=== PATIENT | male | born 1995 | race Caucasian/White ===

== ENCOUNTER 2017-02-17 01:55 | Emergency (ER) | payer OTHER ==
[~2017-02-17] VITALS: Ht 190.5 cm; Wt 127.4 kg
[2017-02-17 02:00] VITALS: TEMP 36.9; Ht 190.5 cm; Wt 127.4 kg
[2017-02-17] MEDS ORDERED: DiphenhydrAMINE HCL 50 MG/ML VIAL IV STA (02:05)
[2017-02-17] MEDS ORDERED: FAMOTIDINE IV INJ 20 MG in DEXTROSE 5% 100ML 100 ML IV STA (02:05)
[2017-02-17] MEDS ORDERED: EPINEPHRINE ADULT AUTO-INJECT 0.3 MG SYR IM STA (02:05)
[2017-02-17] MEDS ORDERED: ALBUT/IPRATROP 3MG/0.5MG NEB 3 ML VIAL INH STA (02:08)
[2017-02-17] MEDS ORDERED: DEXAMETHASONE **PF** INJ 10 MG/ML VIAL IV ONE (02:15)
[2017-02-17] MEDS ORDERED: VNTHFA/IN INH (02:15)
[2017-02-17] MEDS ORDERED: ADVIN10/60 INH (02:16)
[2017-02-17] MEDS ORDERED: FLUT0.15 NAE (02:17)
[2017-02-17] MEDS ORDERED: [UNRECOGNIZED DRUG - REMARK] PO (02:20)
[2017-02-17] MEDS ORDERED: ONDANSETRON INJ 2 MG/ML 2 ML VIAL IV STA (02:57)
[2017-02-17] MEDS ORDERED: ONDANSETRON INJ 2 MG/ML 2 ML VIAL ONE (02:58)
[2017-02-17 03:21] VITALS: O2SAT 95
[2017-02-17 05:37] VITALS: BP 119/73; PULSE 90; O2SAT 96
--- NOTE | 2017-02-17 05:48 | EMERGENCY ROOM VISIT NOTE ---
History First contact with patient: 02:04 Chief Complaint: ALLERGIC REACTION Stated Complaint: ALLERGIC REACTION TO PEANUTS Nursing Triage Summary: prior to arrival patient ate a cookie with peanut in it and developed allergic reaction and trouble breathing. patient administered himself an epi-pen prior to arrival and took 50mg benadryl. History of Present Illness The patient is a 21 year old male who presents to the Emergency Room with complaints of throat tightness, tongue swelling, itching and shortness of breath after being exposed to peanuts. Patient states he had some cookies and did not realize there was peanuts in it as they were not supposed to have any nuts in them. patient immediately had difficulty breathing and throat tightness and his friend gave him his EpiPen to use. She states he feels somewhat better from this but still feels wheezy itchy and shaky. His is the first time ever he sees an EpiPen. He also took 50 of Benadryl. Patient also plans of nausea and vomiting. Patient denies chest pain, abdominal pain, headache, recent illness. No other new foods soaps or detergents. Review of Systems See HPI for pertinent positives & negatives. A total of 10 systems reviewed and were otherwise negative. Past Medical/Surgical History None Social History Smoking Status: Never Smoker Smokeless Tobacco Use: No Drug Use: none Marital Status: single Occupation Status: [employer] student Current/Historical Medications Scheduled [[facility] ], 1 TAB PO DAILY Scheduled PRN Albuterol Hfa (Ventolin Hfa), 2 PUFFS INH Q6H PRN for SOB/Wheezing Fluticasone Prop/Salmeterol (Advair Diskus 100/50 60 Dose), 1 PUFFS INH BID PRN for SOB/Wheezing Fluticasone Propionate (Nasal) (Flonase Allergy Relief), 1 SPRAY BRIAN BID PRN for Allergic Reaction Physical Exam Vital Signs Date Time Temp Pulse Resp B/P (MAP) Pulse Ox O2 Delivery O2 Flow Rate FiO2 02/17/17 05:37 90 20 119/73 96 Room Air 02/17/17 03:57 126 20 113/69 93 Room Air 02/17/17 03:21 95 Nasal Cannula 2.0 02/17/17 03:21 89 Room Air 02/17/17 02:24 120 20 126/89 96 Room Air 02/17/17 02:18 100 Room Air 02/17/17 02:18 100 Room Air 02/17/17 02:18 100 Room Air 02/17/17 02:15 113 02/17/17 02:00 36.9 127 24 139/79 94 Room Air Physical Exam VITALS: Vitals are noted on the nurse's note and reviewed by myself. Vital signs stable. GENERAL: Pleasant male speaking in full sentences, in no acute distress, nondiaphoretic, well-developed well-nourished. SKIN: Diffuse erythematous blanchable dermatitis most consistent with hives The rest of the skin was without rashes, erythema, edema, or bruising. There is no tenting of the skin. Capillary reflex less than 2 seconds. HEAD: Normocephalic atraumatic. EARS: External auditory canals clear, tympanic membranes pearly hernández without erythema or effusion bilaterally. EYES: Pupils equal round and reactive to light and accommodation. Conjunctivae without injection, sclerae without icterus. Extraocular movements intact. NOSE: Patent, turbinates without inflammation or discharge. No sinus tenderness. MOUTH: Mucous membranes moist. Pharynx with erythema without exudate. Uvula midline and slightly edematous. Airway patent. Tongue does not deviate. NECK: Supple without nuchal rigidity. No lymphadenopathy. No thyromegaly. Cervical spine is nontender. No JVD. HEART: Regular rate and rhythm without murmurs gallops or rubs. LUNGS: Mild diffuse end expiratory wheezes, without rales or rhonchi. No dullness to percussion. No retractions or accessory muscle use. ABDOMEN: Positive bowel sounds x 4. Normal tympanic percussion. Soft, nontender, without masses or organomegaly. Ramírez sign negative. No guarding or rebound tenderness. MUSCULOSKELETAL: No muscle atrophy, erythema, or edema noted. NEURO: Patient was alert and oriented to person place and time. Normal sensation to light and sharp touch. No focal neurological deficits. Medical Decision & Procedures Medications Administered Medications (Trade) Dose Ordered Sig/Mauro Route Start Time Stop Time Status Last Admin Dose Admin Dexamethasone Sodium Phosphate (Dexamethasone Inj Pf) 10 mg NOW ONCE IV 02/17/17 02:15 02/17/17 02:16 DC 02/17/17 02:11 10 MG Famotidine 20 mg/ Dextrose 102 ml @ 200 mls/hr NOW STAT IV 02/17/17 02:05 02/17/17 02:35 DC 02/17/17 02:16 200 MLS/HR Epinephrine (Epipen) 0.3 mg NOW STAT IM 02/17/17 02:05 02/17/17 02:07 DC 02/17/17 02:11 0.3 MG Albuterol/ Ipratropium (Duoneb) 3 ml NOW STAT INH 02/17/17 02:08 02/17/17 02:09 DC 02/17/17 02:11 3 ML Ondansetron HCl (Zofran Inj) 4 mg NOW STAT IV 02/17/17 02:57 02/17/17 02:58 DC 02/17/17 02:57 4 MG ED Course Prior records/ancillary studies reviewed. Triage Nursing notes reviewed. Additional history obtained from friends. The patient's history was concerning for possible allergic reaction. Differential diagnosis: Etiologies such as allergic reaction, anaphylaxis, urticaria, Callahan-Don syndrome, toxic epidermal necrolysis, erythema multiforme, cellulitis, as well as others were entertained. Physical examination: As above. Patient had some airway swelling and urticaria with wheezing ER treatment provided: Continuous cardiac monitoring Benadryl 50 mg IV Pepcid 20 mg IV Decadron 10 mg IV Nebulizer IV fluids, Zofran On reassessment the patient felt better. Diagnostic interpretation by me: Deferred It appears the patient had an anaphylactic allergic reaction. The above treatment did well to reverse the symptoms. After prolonged monitoring and frequent reassessments the patient did very well and symptoms resolved. The patient was counseled on the spectrum of this disease process and told to avoid potential triggers. I gave my usual and customary discussion regarding this issue. By the evaluation outlined above emergent etiologies such as recurring anaphylaxis, anaphylatic shock, airway compromise, Callahan-Don syndrome, toxic epidermal necrolysis, erythema multiforme, infectious etiologies, as well as others were deemed relatively unlikely. The pt informed about the findings as listed above. All questions were answered and pleased with the treatment. Return instructions were outlined and the patient was discharged in stable condition. Outpatient prescription management: EpiPen prednisone Referral: The patient was referred back to primary care physician for follow-up in 2-3 days for a recheck of the current condition. or The patient was referred to Allergy/Immunology for further evaluation. Medical Decision As above Medication Reconcilliation Current Medication List: was personally reviewed by me Blood Pressure Screening Patient's blood pressure: Normal blood pressure Impression Primary Impression: Anaphylaxis Departure Information Dispostion Home / Self-Care Condition GOOD Referrals No Doctor, Assigned (PCP) Patient Instructions My [facility] Additional Instructions DO NOT drive, drink alcohol, operate machinery, or perform dangerous activities today. You were given medications in the ER that can affect your ability to safely function or operate a vehicle. Do not be around any nuts at all. Avoid touching them or being near them. Epi-Pen: Use one injection as instructed for severe allergic reactions associated with shortness of breath, difficulty breathing, or throat or tongue swelling. If you use this injection call 911 or proceed immediately to the nearest Emergency Room. Prednisone 50mg: Once daily until the prescription is finished. It is best to take this earlier in the day as some patients note occasional difficulty falling asleep when taken in the late evening. Diphenhydramine(Benadryl) 25mg: use 25 to 50 mg every six hours for swelling, itching, or hives. This medication is sedating and will cause drowsiness. Avoid alcohol, operating machinery or dangerous equipment, working on ladders or roofs, DRIVING, or situations where being under the influence may be dangerous. Zantac 75: Take two pills twice a day along with Benadryl as needed for swelling , itching, or hives. Most people know this for its affect on the stomach, but it also acts similar to, but less potent than Benadryl for allergic reactions. Both the Benadryl and the Zantac are available [id number]. Continue current medications. Return to the emergency department for worsening of your rash, swelling of your face, lips, tongue, or throat, difficulty breathing, vomiting, or as needed. Follow-up with your primary care physician in 2 to 3 days for a recheck of your current condition. Problem Qualifiers Primary Impression: Anaphylaxis Encounter type: initial encounter Qualified Codes: T78.2XXA - Anaphylactic shock, unspecified, initial encounter
[2017-02-17] MEDS ORDERED: PRED50TA PO (05:50)
[2017-02-17] MEDS ORDERED: EPP3/2 IM (05:50)
== END 2017-02-17 06:02 | disposition home or self-care (01) ==
LOC: C.EDB 01:56
DX: T78.01XA Anaphylactic reaction due to peanuts, initial encounter (principal); X58.XXXA Exposure to other specified factors, initial encounter

== ENCOUNTER → 2017-03-14 | Outpatient (CLI) | payer OTHER ==
[~2017-03-14] MED LIST: ADVIN10/60 INH; EPP3/2 IM; FLUT0.15 NAE; VNTHFA/IN INH; [UNRECOGNIZED DRUG - REMARK] PO
== END | disposition home or self-care (01) ==
LOC: C.RDSM 15:19
PROVIDERS: ATTEND Family Medicine Sports Medicine
DX: M25.561 Pain in right knee (principal); Z91.018 Allergy to other foods; Z91.010 Allergy to peanuts

== ENCOUNTER → 2017-03-23 | Outpatient (CLI) | payer OTHER ==
--- NOTE | 2017-03-23 17:35 | DIAGNOSTIC IMAGING REPORT ---
R LOWER EXT JOINT WITHOUT CLINICAL HISTORY: RT KNEE PAIN pain TECHNIQUE: MRI multi axial acquisition COMPARISON STUDY: None FINDINGS: Signal characteristics the osseous structures are in general unremarkable. There is a small bone contusion anterior aspect lateral tibial plateau. This is associated with a 5 x 6 mm meniscal cyst. Minimal contusion fibular head. Anterior and posterior cruciate ligaments are intact. Medial and lateral collateral ligaments are unremarkable. Lateral meniscus is grossly unremarkable. There appears to be a very small short segment intrameniscal tear of the peripheral margin of the anterior horn. The medial meniscus shows very slight truncation apex anterior horn medial meniscus. The remainder the medial meniscus is unremarkable. IMPRESSION: 1. Very small contusion anterior aspect medial tibial plateau associated with a small 6 x 5 mm meniscal cyst. 2. Very small short segment intrameniscal tear peripheral aspect anterior horn lateral meniscus. 3. Slight truncation apex anterior horn medial meniscus. 4. Otherwise negative study. The above report was generated using voice recognition software. It may contain grammatical, syntax or spelling errors. Electronically signed by: Louie Fernando M.D. 03/23/2017 5:34 PM Dictated Date/Time: 03/23/2017 5:27 PM
== END | disposition home or self-care (01) ==
LOC: C.MRI 16:44
PROVIDERS: ATTEND Family Medicine Sports Medicine
DX: M25.561 Pain in right knee (principal); S80.01XA Contusion of right knee, initial encounter; S83.281A Other tear of lateral meniscus, current injury, right knee, initial encounter; X58.XXXA Exposure to other specified factors, initial encounter

== ENCOUNTER → 2017-04-06 | Outpatient (CLI) | payer OTHER ==
[~2017-04-06] MED LIST changes: +IBUP-1050 PO
== END | disposition home or self-care (01) ==
LOC: C.RDSM 16:00
PROVIDERS: ATTEND Orthopaedic Surgery
DX: M25.561 Pain in right knee (principal); Z91.018 Allergy to other foods; Z91.010 Allergy to peanuts

== ENCOUNTER → 2017-04-18 | Day surgery (SDC) | payer OTHER ==
[2017-04-13 12:20] VITALS: Ht 190.5 cm; Wt 122.7 kg
[~2017-04-18] VITALS: Ht 190.5 cm; Wt 122.7 kg
[~2017-04-18] MED LIST changes: -ADVIN10/60 INH; +ATROPINE SULFATE 0.1 MG/ML 5ML SYR IV PRN; +CEFAZOLIN 3000MG IV PUSH 22.5 ML IV SCH; +DEXAMETHASONE SOD INJ 4 MG/ML VIAL ONE; +EpHEDrine SULFATE INJ 50 MG/ML AMP IV PRN; +EpINEphrine HCL INJ 1 MG/ML 1ML SYRINGE ONE; +EpINEphrine INJ 1MG/ML AMP 1 MG/ML AMP ONE; +FENTANYL CITRATE INJ 50 MCG/1 ML 2 ML VIAL IV PRN; +FENTANYL CITRATE INJ 50 MCG/1 ML 2 ML VIAL ONE; -FLUT0.15 NAE; +HYDROmorphone INJ 1 MG/ML SYR IV PRN; +KETOROLAC TROMETHAMINE 30 MG/ML VIAL ONE; +LACTATED RINGER'S 1000ML 1,000 ML IV SCH; +LIDO 2%/EPINEPHRINE 1:100000 20 ML VIAL INFIL ONE; +LIDOCAINE HCL 2% 2 ML VIAL (20MG/ML) ONE; +METOCLOPRAMIDE HCL INJ 5 MG/ML 2 ML VIAL IV PRN; +MIDAZOLAM HCL 1 MG/ML 2ML VIAL ONE; +ONDANSETRON INJ 2 MG/ML 2 ML VIAL IV PRN; +ONDANSETRON INJ 2 MG/ML 2 ML VIAL ONE; +OXYCODONE/ACETAMINOPHEN 5-325 TAB PO PRN; +PROPOFOL IV EMULSION 10 MG/ML 20 ML VIAL IV ONE; +ROPIVACAINE 0.5% 5 MG/ML 30 ML VIAL ONE; +SODIUM CHLORIDE 0.9% 1000ML 1,000 ML IV SCH; -[UNRECOGNIZED DRUG - REMARK] PO
--- NOTE | 2017-04-18 06:48 | History & Physical Bridge - SC ---
H&P Re-Evaluation Bridge Note: I have examined the patient, reviewed the History & Physical and in the interval since the performance of the History & Physical I have noted the following changes of clinical significance: No changes noted
--- NOTE | 2017-04-18 08:02 | [facility] Post Operative Brief Note ---
Immediate Operative Summary Operative Date Apr 18, 2017. Pre-Operative Diagnosis Right Knee Parameniscal Cyst Post-Operative Diagnosis same as preop Procedure(s) Performed Right Knee Arthroscopy, Minor Synovectomy,Parameniscal Cyst Decompression Surgeon Dr. Ibrahim Tester [employer]ards Surgeon(s) Juve Mullen PA-C Estimated Blood Loss 1ml Findings Consistent with Post-Op Diagnosis Fluids (cc crystalloids) 750 cc Specimens none Drains None Anesthesia Type General Complication(s) none Disposition Accompanied Pt To Recovery: no Disposition: Recovery Room / PACU
--- NOTE | 2017-04-18 08:16 | [facility] Operative Report ---
Operative Report Operative Date Apr 18, 2017. Pre-Operative Diagnosis Right Knee Parameniscal Cyst Post-Operative Diagnosis same as preop Procedure(s) Performed Right Knee Arthroscopy, Minor Synovectomy,Parameniscal Cyst Decompression Surgeon Dr. Ibrahim Termite Inspector Surgeon(s) Juve Mullen PA-C Estimated Blood Loss 1ml Fluids 750 cc Specimens none Drains None Anesthesia Type General Complication(s) none Disposition no Recovery Room / PACU I attest to the content of the Intraoperative Record and any orders documented therein. Any exceptions are noted below.
--- NOTE | 2017-04-18 08:20 | Discharge Instructions ---
Discharge Instructions Date of Service Apr 18, 2017. Admission Reason for Admission: Right Knee Parameniscal Cyst Discharge Discharge Diagnosis / Problem: Right knee synovitis; parameniscal cyst Discharge Goals Goal(s): Decrease discomfort, Improve function, Increase independence Activity Recommendations Activity Limitations: as noted below Lifting Limitations: none Exercise/Sports Limitations: until after follow-up appointment May Resume Sexual Activity: when tolerated Shower/Bathe: tomorrow, keep incision dry Driving or Machine Use: After 2 wks post op follow up Weightbearing Status: Right weightbearing (as tolerated with aide of crutches) . Instructions / Follow-Up Instructions / Follow-Up Post-operative Instructions Dear Patient and Family/Friends, Before you are discharged from the hospital, it is important to know what to expect when you get home after surgery. To that end, we have created this sheet of discharge instructions which covers many commonly asked questions. Make sure you go through this sheet in its entirety with your nurse before you are discharged. Please note that we will go over the specifics of your surgery and recovery when you return for your first post-operative visit. Sincerely, Dr. Ibrahim Pain Expect to be in a fair amount of pain after surgery. Remember, our goal is not to eliminate your pain, but to make it tolerable. It is a good idea to stay ahead of your pain by taking the medications you were prescribed once you get home. Typically, the pain starts improving 3-7 days after surgery. You should start weaning off the narcotic pain medication (oxycodone, hydrocodone, hydromorphone, morphine) as soon as your pain improves. Please call our office if your pain is not adequately controlled. Ice Ice your operative site at least 5 times a day for 15-30 minutes at a time. Make sure you have a thin cloth between the ice or cooling unit and your skin to prevent painting bite. This is especially important if you received a nerve block. Continue icing your operative site for the first 5-7 days after surgery , then as needed. Diet/Nausea/Vomiting Start by drinking clear liquids and eating crackers. If you can tolerate this, then you may resume your normal diet. If you feel nauseated or vomit, take Zofran/ondansetron (if prescribed). Please call our office if you have intractable nausea or vomiting, or, if after hours, you may go to the Emergency Room for help. Constipation Constipation is a common side effect of narcotic pain medication. If you have not had a bowel movement within 2 days after surgery, we recommend purchasing an over the counter laxative such as Milk of Magnesia, Dulcolax, or Miralax from a local pharmacy, and taking it as instructed. Call our clinic if any questions. Slings and Braces If you were placed in a sling or brace, it must be worn at all times, including sleep. You may remove your sling or brace for physical therapy, home exercises , and showering. The length of time you will be in your brace and range of motion restrictions depends on what surgery you had; these details will be reviewed at your first post-operative appointment. Weight bearing and Range of Motion. Do not bear any weight through your operative extremity immediately after surgery. If you had upper extremity surgery, do not lift anything with that arm. If you are in a knee brace, keep it locked in place until your follow-up. We will discuss your weight bearing, range of motion, and lifting restrictions in detail at your first post-operative appointment. Continuous Passive Motion (CPM) Machine If you were prescribed a CPM machine, it will start after your first post- operative appointment, at which time we will give you instructions on the range of motion settings and duration of treatment Physical therapy You will be given a prescription for physical therapy or occupational therapy at your first post-operative appointment. Typically, patients start therapy within 1 week of surgery Wound care and showering We will inspect your wound at your first post-operative visit, and may do a dressing change at that time. Most patients will be in a water-proof dressing that is removed 14 days after surgery. It is normal to see some dried blood on the dressing. Do not remove your dressing, paper strips or sutures yourself unless you are given permission. Showering is allowed the day after surgery. Do not scrub or remove any dressings. The wound should not be submerged underwater (i.e. in a bathtub or pool) until 4 weeks after surgery MERRY stockings If you were given white stockings, these are to be worn at all times except to shower (on both legs) for the first 2 weeks after surgery. Driving You may not drive while taking narcotic pain medication or while in a cast, splint, sling or brace. You, the patient, need to make the final determination about when you are safe to drive, however, the earliest you may consider driving after surgery is below: Hand/Wrist/Elbow Surgery: 3 days Shoulder Surgery: 2 weeks Hip,/Knee/Ankle Surgery: 4 weeks Fracture repair: 6 weeks Return to Work Your return to work depends on what surgery was done and what type of work you do. Please bring any paperwork your employer needs completed to your first post -operative visit. Also, bring a description of your job duties, as this helps us to understand what risks you may face at work. Travel Avoid long distance travel (greater than 1 hour) in airplanes and cars for the first 6 weeks after surgery. If you must travel, you need to have a Doppler ultrasound done before you travel to rule out a blood clot in your legs. Follow-up You should have a follow-up appointment already scheduled 1-2 days after surgery. If not, please contact our office to make this appointment before you leave the hospital. When to call the office It is normal to have swelling and bruising in the limb that was operated on. This will improve with time. It is also normal to have fevers for the first 2 days after surgery. Reasons you should call your doctor include: Uncontrolled pain; Nausea, vomiting, or constipation that does not improve with medication; Fevers over 101.5, chills, sweats; Drainage or bleeding from the wound; Foul odor; Spreading areas of redness; Any other concerns Current Hospital Diet Patient's current hospital diet: Discharge Diet Recommended Diet: Regular Diet Procedures Procedures Performed: Right Knee Arthroscopy, Minor Synovectomy,Parameniscal Cyst Decompression Pending Studies Studies pending at discharge: no Medical Emergencies . Who to Call and When: Medical Emergencies: If at any time you feel your situation is an emergency, please call 911 immediately. . Non-Emergent Contact Non-Emergency issues call your: Primary Care Provider Call Non-Emergent contact if: you have a fever, temperature is above 101.5, your pain is not controlled, your pain is worsening, wound has increased drainage, you have any medication questions . "Provider Documentation" section prepared by Juve Mullen. . [place] Drug Monitoring Program Search Results: patient reviewed within database, no issues identified, see additional documentation
--- NOTE | 2017-04-18 08:42 | OPERATIVE REPORT ---
DATE OF OPERATION: 04/18/2017 PREOPERATIVE DIAGNOSIS: Right knee lateral parameniscal cyst. POSTOPERATIVE DIAGNOSIS: Same and lateral synovitis. OPERATIONS PERFORMED: 1. Right knee arthroscopy parameniscal cyst decompression. 2. Right knee minor synovectomy. SURGEON: Sandor Ibrahim MD. MANAGER PROCUREMENT: Shey Mullen. ESTIMATED BLOOD LOSS: 1 mL. IV FLUIDS: 750 mL crystalloid. IMPLANTS: None. SPECIMENS: None. COMPLICATIONS: None. INDICATIONS: Bogdan is a 21-year-old male with a history of football injury taking a helmet to the anterolateral aspect of the knee back in high school. He has had anterolateral knee pain that has been refractory to conservative management. MRI was obtained demonstrating a parameniscal cyst. Physical exam is consistent with tenderness to palpation along the anterior lateral and mid lateral joint lines. I had a long discussion with him about the treatment options, risks and benefits of surgery, alternatives to surgery and expected outcomes. After reviewing all these he elected to proceed with surgery. All questions were answered. Informed consent was signed. OPERATIVE FINDINGS: 1. Undersurface of the patella showed small area of grade 2 chondromalacia at the median ridge. 2. The trochlea was normal. 3. The medial and lateral gutters showed no loose bodies. 4. The medial compartment showed some grade 1 chondromalacia and softening of the medial femoral condyle and medial tibial plateau. The medial meniscus was normal. 5. The ACL and the PCL were intact. 6. The lateral compartment showed the lateral meniscus to be intact. There was some bulging of the synovium in the area of the cyst on the undersurface of the meniscus at the junction of the mid body with the anterior horn. He had some minor grade 1 softening of the lateral tibial plateau. Lateral femoral condyle was intact. The cyst was decompressed with the spinal needle as well as the shaver. The area of synovitis in the anterolateral aspect of the knee was removed with shaver and cautery. DESCRIPTION OF OPERATION: The patient was identified in the preoperative holding area where surgical site was marked. He was brought back to the main operating room, was placed on the operating room table and general anesthesia was administered. All bony prominences were padded. Perioperative antibiotics were administered. He was prepped and draped in the normal sterile fashion. Prior to incision, a multidisciplinary timeout was called. All in the room were in agreement. We began by making an anterolateral working portal. Medial working portal was created under direct visualization. We then performed a diagnostic arthroscopy revealing the above findings. Once our diagnostic arthroscopy was complete, the shaver was introduced through the anterolateral portal and used to release the ligamentum mucosum as well as to resect the area of synovitis in the anterolateral aspect of the knee. The meniscus was extensively probed and there were no tears seen. We shifted the scope then to the anteromedial portal and looked with both the 30 and 70 degree scopes to ensure that there was no tears of the lateral meniscus. We then used a probe to lift up the meniscus and on the capsular side of the joint just below the meniscus, there was a small area of swelling in the region of the cyst location on preoperative MRI as well as his area of maximal tenderness to palpation on exam. We then introduced the spinal needle percutaneously through this area of the cyst. The spinal needle was passed multiple times. A small amount of cyst contents could be seen with expressing the knee. However, I desired to see more decompression of the cyst. Therefore, an 11 blade was used to make a small skin incision just below the meniscus. Through this incision, the shaver was introduced underneath the meniscus and was used to resect the capsule of the cyst and the adjacent capsule just below the meniscus. At this point, our final arthroscopic images were obtained. The meniscus was once again probed and was completely intact. The arthroscope was then removed from the knee. His portals were closed with 3-0 Monocryl sutures. Steri-Strips and a compressive dressing were applied. He was awoken from anesthesia and transferred to the recovery room in stable condition. POSTOPERATIVE COURSE: The patient will be discharged home from the recovery room. He will be weightbearing as tolerated with crutches for the next 2-3 days. He will follow up in clinic tomorrow where we will review his arthroscopic images as well as have him start physical therapy. He will receive 14 days of Xarelto as he is a Factor V Leiden carrier with the family history, but no personal history of blood clots. I attest to the content of the Intraoperative Record and any orders documented therein. Any exception s are noted below.
[2017-04-18 09:23] VITALS: TEMP 36.7
--- NOTE | 2017-04-18 09:39 | Anesthesia Progress Nt - [facility] ---
Anesthesia Post Op Note Date & Time Apr 18, 2017 at 09:39 Vital Signs Pain Intensity: 2 Vital Signs Past 12 Hours Date Time Temp Pulse Resp B/P (MAP) Pulse Ox O2 Delivery O2 Flow Rate FiO2 04/18/17 09:23 36.7 67 16 147/81 (103) 98 Room Air 04/18/17 09:18 56 12 98 04/18/17 09:18 60 12 04/18/17 09:17 77 14 98 04/18/17 09:17 78 14 04/18/17 09:16 146/89 04/18/17 09:15 36.6 77 13 146/89 98 Room Air 04/18/17 09:13 87 20 98 04/18/17 09:13 89 20 04/18/17 09:12 84 22 04/18/17 09:12 85 22 97 04/18/17 09:11 141/77 04/18/17 09:07 90 19 04/18/17 09:07 89 19 98 04/18/17 09:06 138/82 04/18/17 09:02 76 18 04/18/17 09:02 76 18 100 04/18/17 09:01 127/70 04/18/17 08:57 74 17 100 04/18/17 08:57 75 17 04/18/17 08:56 133/63 04/18/17 08:52 75 36 04/18/17 08:52 74 36 99 04/18/17 08:51 130/58 04/18/17 08:47 89 17 04/18/17 08:47 93 17 100 04/18/17 08:46 136/62 04/18/17 08:42 79 17 04/18/17 08:42 79 17 100 04/18/17 08:41 130/63 04/18/17 08:37 98 15 99 04/18/17 08:37 92 15 04/18/17 08:36 140/63 04/18/17 08:35 90 19 04/18/17 08:35 85 19 100 04/18/17 08:31 132/59 04/18/17 08:30 74 18 04/18/17 08:30 73 18 99 04/18/17 08:26 130/60 04/18/17 08:25 76 14 99 04/18/17 08:25 76 14 04/18/17 08:21 131/55 04/18/17 08:20 75 14 99 04/18/17 08:20 74 14 04/18/17 08:16 119/64 04/18/17 08:15 36.7 77 16 119/64 99 Mask 6 04/18/17 06:27 36.7 91 16 142/87 (105) 97 Room Air Notes Mental Status: alert / awake / arousable, participated in evaluation Pt Amnestic to Procedure: Yes Nausea / Vomiting: adequately controlled Pain: adequately controlled Airway Patency, RR, SpO2: stable & adequate BP & HR: stable & adequate Hydration State: stable & adequate Anesthetic Complications: no major complications apparent
[2017-04-18 09:57] VITALS: BP 147/83; PULSE 80; O2SAT 97
== END | disposition home or self-care (01) ==
LOC: X.SURG 06:13
PROVIDERS: ATTEND Orthopaedic Surgery
DX: M23.041 Cystic meniscus, anterior horn of lateral meniscus, right knee (principal); M65.9 Synovitis and tenosynovitis, unspecified; D68.51 Activated protein C resistance